=== PATIENT | male | born 1985 | race African-American/Black ===

== ENCOUNTER 2024-08-26 09:42 | Emergency (ER) | payer SELFPAY ==
[2024-08-26] MEDS ORDERED: NA CHLORIDE 0.9% 1,000 ML ONE (10:26)
[2024-08-26 10:44] LABS: Absolute Basophils 0.1 K/uL (0-0.5); Absolute Eosinophils 0.3 K/uL (0-0.5); Absolute Lymphocytes (CBC) 1.2 K/uL (0.7-4.9); Absolute Neutrophil 4.2 K/uL (1.8-8.0); Basophils % 0.8 % (0-1.3); Eosinophils % 5.1 % (0-4.4); Hematocrit 25.2 % (39.6-49.0); Hemoglobin 7.5 g/dL (13.6-17.9); Lymphocytes % 17.2 % (15.3-44.8); MCH 18.8 pg (27.0-35.0); MCHC 29.9 g/dL (32.0-36.0); MCV 62.9 fL (80-100); MPV 6.4 fL (7.6-11.3); Monocytes % 14.8 % (3.3-12.3); Neutrophils % 62.1 % (41.7-73.7); Nucleated Red Blood Cells % 0.1 % (0-0); Platelets 687 thou/uL (152-406); RBC Red Blood Cell Count 4.01 M/uL (4.33-5.43); Red Cell Distribution Width 20.2 % (12.1-15.2)
[2024-08-26 11:01] LABS: Albumin 3.1 g/dL (3.4-5.0); Albumin/Globulin Ratio 0.8 (1.1-1.8); Anion Gap 8.2 mEq/L (5.0-15.0); Bilirubin Total 0.2 mg/dL (0.2-1.0); Potassium 4.2 mEq/L (3.5-5.1); Protein, Total 7.1 g/dL (6.4-8.2)
[2024-08-26 12:09] LABS: Anisocytosis 1+; Blood Morphology Comment NOTED (NOT SEEN); Hypochromasia 2+; Microcytosis 2+; Platelet Estimate INCR; Platelets, Giant NOTED; Polychromasia 1+; Target Cells 1+; White Blood Cell Scan OK (OK)
[2024-08-26 12:10] LABS: Teardrop Cell FEW
[2024-08-26 12:34] LABS: Specific Gravity 1.022 (1.005-1.030); Urine Bilirubin NEGATIVE (Negative); Urine Blood Negative (Negative); Urine Clarity Clear (Clear); Urine Color Light-Yellow (Yellow); Urine Glucose NEGATIVE (Negative); Urine Ketones NEGATIVE (Negative); Urine Microscopic Reflex YN NO UMIC; Urine Nitrite NEGATIVE (Negative); Urine Protein NEGATIVE (Negative); Urine Urobilinogen Normal (Normal); Urine pH 7.5 (5.0-7.0)
--- NOTE | 2024-08-26 12:58 | ER ---
Nurse's Notes [facility] Name: June Plummer Jr Age: 38 yrs Sex: Male : 1985 Arrival Date: 08/26/2024 Time: 09:42 Bed 17 Private MD: Diagnosis: Diarrhea, unspecified;Iron deficiency anemia, unspecified;Crohn's disease, unspecified, without complications Presentation: 08/26 10:02 Chief complaint: Patient states: he started a new medication for his Crohns disease and ap3 he has been having diarrhea for a few days. patient denies any nausea or vomiting. Coronavirus screen: At this time, the client does not indicate any symptoms associated with coronavirus-19. Ebola Screen: No symptoms or risks identified at this time. Initial Sepsis Screen: Does the patient meet any 2 criteria? No. Patient's initial sepsis screen is negative. Does the patient have a suspected source of infection? No. Patient's initial sepsis screen is negative. Risk Assessment: Do you want to hurt yourself or someone else? Patient reports no desire to harm self or others. Onset of symptoms is unknown. 10:02 Method Of Arrival: Ambulatory ap3 10:02 Acuity: YOLIS 3 ap3 Triage Assessment: 10:04 General: Appears in no apparent distress. Behavior is calm, cooperative, appropriate ap3 for age. Pain: Denies pain. Neuro: Level of Consciousness is awake, alert, obeys commands, Oriented to person, place, time, situation, Appropriate for age Gait is steady, Speech is normal. Cardiovascular: Patient's skin is warm and dry. Respiratory: Airway is patent Respiratory effort is even, unlabored, Respiratory pattern is regular, symmetrical. GI: Reports diarrhea. Historical: - Allergies: 10:04 No Known Allergies; ap3 - PMHx: 10:04 Crohn's disease; ap3 - Immunization history:: Client reports receiving the 2nd dose of the Covid vaccine. - Infectious Disease History:: Denies. - Social history:: Smoking status: Patient denies any tobacco usage or history of. Screenin:05 [facility] ED Fall Risk Assessment (Adult) History of falling in the last 3 months, ap3 including since admission No falls in past 3 months (0 pts) Confusion or Disorientation No (0 pts) Intoxicated or Sedated No (0 pts) Impaired Gait No (0 pts) Mobility Assist Device Used No (0 pt) Altered Elimination No (0 pt) Score/Fall Risk Level 0 - 2 = Low Risk Oriented to surroundings, Maintained a safe environment, Educated pt \T\ family on fall prevention, incl call for assistance when getting out of bed, Assessed \T\ reinforced patient's understanding of fall precautions, Hourly rounding (assess needs \T\ fall precautionary measures) done, Used ambulatory aids as needed (educated on \T\ assisted with), Used gait belt as appropriate. Abuse screen: Denies threats or abuse. Nutritional screening: No deficits noted. Tuberculosis screening: No symptoms or risk factors identified. Assessment: 10:37 General: Appears in no apparent distress. comfortable, well groomed, Behavior is calm, ph cooperative, appropriate for age. Pain: Denies pain. Neuro: Level of Consciousness is awake, alert, obeys commands, Oriented to person, place, time, situation. Cardiovascular: Capillary refill < 3 seconds in bilateral fingers Patient's skin is warm and dry. Respiratory: Airway is patent Respiratory effort is even, unlabored. GI: Reports diarrhea, Patient currently denies abdominal pain, nausea, vomiting. Derm: Skin is dry, Skin is normal, Skin temperature is warm. Musculoskeletal: Circulation, motion, and sensation intact. Range of motion: intact in all extremities. 12:37 General: Appears comfortable, well groomed, well developed, well nourished, Behavior is me1 calm, cooperative, appropriate for age. Pain: Denies pain. Neuro: Level of Consciousness is awake, alert, obeys commands, Oriented to person, place, time, situation, Appropriate for age. Cardiovascular: Patient's skin is warm and dry. Respiratory: Airway is patent Respiratory effort is even, unlabored, Respiratory pattern is regular, symmetrical. GI: Reports diarrhea, Patient currently denies abdominal pain, nausea, vomiting. : No signs and/or symptoms were reported regarding the genitourinary system. EENT: No signs and/or symptoms were reported regarding the EENT system. Derm: Skin is pink, warm \T\ dry. Skin temperature is warm. Musculoskeletal: Circulation, motion, and sensation intact. Range of motion: intact in all extremities. Vital Signs: 10:02 BP 127 / 71; Pulse 85; Resp 17; Temp 99; Pulse Ox 100% ; Weight 104.33 kg; Height 5 ft. ap3 10 in. ; Pain 0/10; 12:30 BP 116 / 66; Pulse 59; Resp 16; Pulse Ox 98% ; me1 12:35 BP 115 / 71 Supine; Pulse 74; me1 12:36 BP 115 / 70 Sitting; Pulse 72; me1 12:37 BP 123 / 72 Standing; Pulse 74; me1 13:30 BP 119 / 70; Pulse 63; Resp 16; Temp 98.4; Pulse Ox 100% ; me1 10:02 Body Mass Index 33.00 (104.33 kg, 177.8 cm) ap3 10:02 Pain Scale: Adult ap3 ED Course: 09:48 Patient arrived in ED. im 09:49 Marvin Stallings MD is Attending Physician. corby 10:04 Triage completed. ap3 10:05 Arm band placed on right wrist. ap3 10:22 Sindy Hernandez, RN is Primary Nurse. ph 10:38 Patient has correct armband on for positive identification. Bed in low position. Call ph light in reach. Side rails up X 1. Pulse ox on. NIBP on. Door closed. Noise minimized. Warm blanket given. Pillow given. 10:38 Initial lab(s) drawn, by me, sent to lab. Inserted saline lock: 20 gauge in right ph antecubital area, using aseptic technique. Blood collected. Flushed with 10 mL NS. 10:40 CPK Sent. ph 10:40 Comprehensive Metabolic Panel Sent. ph 10:40 CBC with Diff Sent. ph 12:30 Urine collected: clean catch specimen, clear. me1 12:37 Provided Education on: POC. Verbalized understanding. . Client placed on continuous me1 cardiac and pulse oximetry monitoring. NIBP monitoring applied. 12:37 No provider procedures requiring assistance completed. me1 12:56 Tad Barker MD is Referral Physician. corby 14:01 IV discontinued, intact, bleeding controlled, No redness/swelling at site. Pressure me1 dressing applied. Administered Medications: 10:40 Drug: NS 0.9% IV 1000 ml IV at 1 bolus Per protocol; 1000 mL bolus Route: IV; Rate: 1 ph bolus; Site: right antecubital; 12:02 Follow up: Response: No adverse reaction; IV Status: Completed infusion; IV Intake: ph 1000ml 12:47 Not Given (verbal order not to give by Dr Buckley): ns 0.9% 1000 ml IV at 1 bolus Per me1 protocol; 1000 mL bolus Medication: 10:38 VIS not applicable for this client. ph Intake: 12:02 IV: 1000ml; Total: 1000ml. ph Outcome: 12:57 Discharge ordered by . corby 14:01 Discharged to home ambulatory, ga1 14:01 Condition: stable 14:01 Discharge instructions given to patient, Instructed on discharge instructions, follow up and referral plans. medication usage, Demonstrated understanding of instructions, follow-up care, medications, Prescriptions given X 4, 14:02 Patient left the ED. me1 Signatures: Marvin Stallings MD MD cha Hall, Patricia RN RN Allie Gomez RN RN [facility] Rowena Andrew Michelle RN RN me1 Corrections: (The following items were deleted from the chart) 10:04 10:02 Chief complaint: Patient states: he started a new medication for his chrons ap3 disease and he has been having diarrhea for a few days. patient denies any nausea or vomiting ap3
--- NOTE | 2024-08-26 12:58 | EDPHYS ---
Physician Documentation [facility] Name: June Plummer Jr Age: 38 yrs Sex: Male : 1985 Arrival Date: 08/26/2024 Time: 09:42 Bed 17 Private MD: MELISSA Physician Marvin Stallings HPI: 08/26 12:50 This 38 yrs old Black Male presents to ER via Ambulatory with complaints of dehydration.corby 12:50 The patient presents to the emergency department with diarrhea, that is intermittent. corby Onset: The symptoms/episode began/occurred 5 day(s) ago. Possible causes: flare up of bowel problem, Crohn's disease, ulcerative colitis, irritable bowel disease. The symptoms are aggravated by nothing. The symptoms are alleviated by nothing. diarrhea, with continued blood. Associated signs and symptoms: The patient has no apparent associated signs or symptoms. Onset: The symptoms/episode began/occurred 2 week(s) ago. Severity of symptoms: At their worst the symptoms were mild in the emergency department the symptoms are unchanged. The patient has experienced similar episodes in the past, multiple times. Historical: - Allergies: 10:04 No Known Allergies; ap3 - PMHx: 10:04 Crohn's disease; ap3 - Immunization history:: Client reports receiving the 2nd dose of the Covid vaccine. - Infectious Disease History:: Denies. - Social history:: Smoking status: Patient denies any tobacco usage or history of. ROS: 12:52 Constitutional: Negative for fever, chills, and weight loss, Eyes: Negative for injury, corby pain, redness, and discharge, ENT: Negative for injury, pain, and discharge, Neck: Negative for injury, pain, and swelling, Cardiovascular: Negative for chest pain, palpitations, and edema, Respiratory: Negative for shortness of breath, cough, wheezing, and pleuritic chest pain, Back: Negative for injury and pain, : Negative for injury, bleeding, discharge, and swelling, MS/Extremity: Negative for injury and deformity, Skin: Negative for injury, rash, and discoloration, Neuro: Negative for headache, weakness, numbness, tingling, and seizure, Psych: Negative for depression, anxiety, suicide ideation, homicidal ideation, and hallucinations, Allergy/Immunology: Negative for hives, rash, and allergies, Endocrine: Negative for neck swelling, polydipsia, polyuria, polyphagia, and marked weight changes, Hematologic/Lymphatic: Negative for swollen nodes, abnormal bleeding, and unusual bruising, 12:52 Abdomen/GI: Positive for diarrhea, Exam: 12:52 Constitutional: This is a well developed, well nourished patient who is awake, alert, corby and in no acute distress. Head/Face: Normocephalic, atraumatic. Eyes: Pupils equal round and reactive to light, extra-ocular motions intact. Lids and lashes normal. Conjunctiva and sclera are non-icteric and not injected. Cornea within normal limits. Periorbital areas with no swelling, redness, or edema. ENT: Nares patent. No nasal discharge, no septal abnormalities noted. Tympanic membranes are normal and external auditory canals are clear. Oropharynx with no redness, swelling, or masses, exudates, or evidence of obstruction, uvula midline. Mucous membranes moist. Neck: Trachea midline, no thyromegaly or masses palpated, and no cervical lymphadenopathy. Supple, full range of motion without nuchal rigidity, or vertebral point tenderness. No Meningismus. Chest/axilla: Normal chest wall appearance and motion. Nontender with no deformity. No lesions are appreciated. Cardiovascular: Regular rate and rhythm with a normal S1 and S2. No gallops, murmurs, or rubs. Normal PMI, no JVD. No pulse deficits. Respiratory: Lungs have equal breath sounds bilaterally, clear to auscultation and percussion. No rales, rhonchi or wheezes noted. No increased work of breathing, no retractions or nasal flaring. Back: No spinal tenderness. No costovertebral tenderness. Full range of motion. Male : Normal genitalia with no discharge or lesions. Skin: Warm, dry with normal turgor. Normal color with no rashes, no lesions, and no evidence of cellulitis. MS/ Extremity: Pulses equal, no cyanosis. Neurovascular intact. Full, normal range of motion. Neuro: Awake and alert, GCS 15, oriented to person, place, time, and situation. Cranial nerves II-XII grossly intact. Motor strength 5/5 in all extremities. Sensory grossly intact. Cerebellar exam normal. Normal gait. Psych: Awake, alert, with orientation to person, place and time. Behavior, mood, and affect are within normal limits. 12:52 Abdomen/GI: Inspection: abdomen appears normal, Bowel sounds: normal, Palpation: abdomen is soft and non-tender, Liver: no appreciated palpable abnormalities, Hernia: not appreciated, Vital Signs: 10:02 BP 127 / 71; Pulse 85; Resp 17; Temp 99; Pulse Ox 100% ; Weight 104.33 kg; Height 5 ft. ap3 10 in. ; Pain 0/10; 12:30 BP 116 / 66; Pulse 59; Resp 16; Pulse Ox 98% ; me1 12:35 BP 115 / 71 Supine; Pulse 74; me1 12:36 BP 115 / 70 Sitting; Pulse 72; me1 12:37 BP 123 / 72 Standing; Pulse 74; me1 13:30 BP 119 / 70; Pulse 63; Resp 16; Temp 98.4; Pulse Ox 100% ; me1 10:02 Body Mass Index 33.00 (104.33 kg, 177.8 cm) ap3 10:02 Pain Scale: Adult ap3 MDM: 09:49 Patient medically screened. corby 12:53 Differential diagnosis: Nonspecific abd pain, gastritis, cholecystitis, pancreatitis, corby appendicitis, diverticulitis, viral gastroenteritis, gastroenteritis. Data reviewed: vital signs, nurses notes, lab test result(s), EKG, radiologic studies, plain films. Consideration of Admission/Observation Escalation of care including admission/observation considered. I considered the following discharge prescriptions or medication management in the emergency department Medications were administered in the Emergency Department. See MAR. Test considered but Not performed: CT: no ct abd pel. Historians other than the Patient: pt well informed. Care significantly affected by the following chronic conditions: crohns. 08/26 09:51 Order name: CBC with Diff; Complete Time: 12:23 corby 08/26 09:51 Order name: Comprehensive Metabolic Panel; Complete Time: 12:23 corby 08/26 09:51 Order name: Urinalysis w/ reflexes [facility] 08/26 09:51 Order name: CPK; Complete Time: 12:23 corby 08/26 10:55 Order name: CBC Smear Scan; Complete Time: 12:23 EDMS 08/26 12:23 Order name: Orthostatics; Complete Time: 12:47 corby Administered Medications: 10:40 Drug: NS 0.9% IV 1000 ml IV at 1 bolus Per protocol; 1000 mL bolus Route: IV; Rate: 1 ph bolus; Site: right antecubital; 12:02 Follow up: Response: No adverse reaction; IV Status: Completed infusion; IV Intake: ph 1000ml 12:47 Not Given (verbal order not to give by Dr Buckley): ns 0.9% 1000 ml IV at 1 bolus Per va1 protocol; 1000 mL bolus Disposition Summary: 08/26/24 12:57 Discharge Ordered Notes: Location: Home [facility] Problem: new [facility] Symptoms: have improved corby Condition: Stable [facility] Diagnosis - Diarrhea, unspecified [facility] - Iron deficiency anemia, unspecified corby - Crohn's disease, unspecified, without complications [facility] Followup: corby - With: Private Physician - When: 2 - 3 days - Reason: Recheck today's complaints, Continuance of care, Re-evaluation by your physician Followup: [facility] - With: Tad Barker MD - When: 2 - 3 days - Reason: Recheck today's complaints, Re-evaluation by your physician Discharge Instructions: - Discharge Summary Sheet [facility] - Iron Deficiency Anemia, Adult [facility] - Anemia [facility] - Food Choices to Help Relieve Diarrhea, Adult [facility] - Crohn's Disease [facility] - Diarrhea, Adult [facility] - Iron-Rich Diet [facility] - Diarrhea, Adult, [id number] [facility] - Iron Deficiency Anemia, Adult, [id number] [facility] Forms: - Medication Reconciliation Form [facility] - Antibiotic Education [facility] - Prescription Opioid Use [facility] - Patient Portal Instructions [facility] - Leadership Thank You Letter [facility] - Work release form em1 Prescriptions: - Ferrous Sulfate 325 mg (65 mg Iron) Oral Tablet - take 1 tablet ORAL route every 8 hours; 90 tablet; Refills: 0, Product [facility] Selection Permitted - Flagyl 500 mg Oral Tablet - take 1 tablet ORAL route every 8 hours for 10 days; 30 tablet; Refills: 0, [facility] Product Selection Permitted - Protonix 40 mg Oral Tablet - take 1 tablet ORAL route once daily; 30 tablet; Refills: 0, Product Selection [facility] Permitted - Medrol (Miguelangel) 4 mg Oral Tablets, Dose Pack - take 1 tablet ORAL route as directed - follow package instructions; 1 packet; [facility] Refills: 0, Product Selection Permitted Signatures: Dispatcher [employer] Marvin Badillo MD MD cha Hall, Patricia RN RN Allie Ramirez RN RN ap3 Latrice Munroe RN me1
[2024-08-26 16:08] VITALS: BP 119/70; TEMP 98.4; O2SAT 100
== END 2024-08-26 14:02 | disposition home or self-care (01) ==
LOC: ER 09:42
DX: K50.90 Crohn's disease, unspecified, without complications (principal); D50.9 Iron deficiency anemia, unspecified
CPT/HCPCS: 36415; 80053; 81003; 82550; 85025; 96360; 99284; J7030